=== PATIENT | female | born 1975 | race Caucasian/White ===

== ENCOUNTER 2018-04-18 08:00 | Outpatient (CLI) | payer OTHER ==
[~2018-04-18 08:00] MED LIST: SYNTHROID50 MCG
== END 2018-04-18 11:00 | disposition home or self-care (01) ==
LOC: RAD 08:00 → MAMO-SONO 09:02 → RAD 09:11
DX: Z12.31 Encounter for screening mammogram for malignant neoplasm of breast (principal); Z12.39 Encounter for other screening for malignant neoplasm of breast; E03.8 Other specified hypothyroidism; E11.9 Type 2 diabetes mellitus without complications; M25.511 Pain in right shoulder

== ENCOUNTER 2018-04-18 10:11 | Outpatient (CLI) | payer OTHER | END 2018-04-18 10:14 | disposition home or self-care (01) | LOC: LAB 10:11 | DX: I10 Essential (primary) hypertension (principal); Z12.11 Encounter for screening for malignant neoplasm of colon; E78.2 Mixed hyperlipidemia; Z12.89 Encounter for screening for malignant neoplasm of other sites ==

== ENCOUNTER 2019-10-02 10:15 | Outpatient (CLI) | payer OTHER | END 2019-10-02 10:16 | disposition home or self-care (01) | LOC: LAB 10:15 | DX: E59 Dietary selenium deficiency (principal); I10 Essential (primary) hypertension; Z11.9 Encounter for screening for infectious and parasitic diseases, unspecified; E78.00 Pure hypercholesterolemia, unspecified; E78.1 Pure hyperglyceridemia; Z12.89 Encounter for screening for malignant neoplasm of other sites; Z12.11 Encounter for screening for malignant neoplasm of colon; Z13.89 Encounter for screening for other disorder; E55.9 Vitamin D deficiency, unspecified ==

== ENCOUNTER 2019-10-02 10:38 | Outpatient (CLI) | payer OTHER | END 2019-10-02 10:47 | disposition home or self-care (01) | LOC: MAMO-SONO 10:38 | DX: Z12.31 Encounter for screening mammogram for malignant neoplasm of breast (principal); Z87.898 Personal history of other specified conditions; N60.11 Diffuse cystic mastopathy of right breast; N60.12 Diffuse cystic mastopathy of left breast; I10 Essential (primary) hypertension ==

== ENCOUNTER 2019-10-02 11:29 | Outpatient (CLI) | payer OTHER | END 2019-10-02 12:00 | disposition home or self-care (01) | LOC: NUCLEAR 11:29 | DX: M81.0 Age-related osteoporosis without current pathological fracture (principal) ==

== ENCOUNTER 2020-04-21 09:10 | Outpatient (CLI) | payer OTHER | END 2020-04-21 09:19 | disposition home or self-care (01) | LOC: SONOGRAMA 09:10 | PROVIDERS: ATTEND Pathology Anatomic Pathology & Clinical Pathology | DX: E04.1 Nontoxic single thyroid nodule (principal) ==

== ENCOUNTER → 2020-06-23 | Outpatient (CLI) | payer OTHER | END | disposition home or self-care (01) | LOC: MRI 10:02 | DX: S83.241A Other tear of medial meniscus, current injury, right knee, initial encounter (principal); M25.561 Pain in right knee | CPT/HCPCS: 73721 ==

== ENCOUNTER 2023-07-10 09:48 | Emergency (ER) | payer OTHER ==
[~2023-07-10] VITALS: Ht 157.5 cm; Wt 88.5 kg
[2023-07-10 10:59] LABS: HEMATOCRIT 33.6 % (36.0-45.00); HEMOGLOBIN 10.6 g/dL (12.0-15.00); MEAN CORPUSCULAR HGB CONC 31.7 g/dl (32.0-36.0); PLATELET COUNT 452 K/uL (150-450); RED CELL DISTRIBUTION WIDTH 19.6 % (11.5-14.5)
[2023-07-10 11:00] LABS: MEAN CELL VOLUME 68.5 fL (80.00-100.00); MEAN CORPUSCULAR HEMOGLOBIN 21.7 pg (27.00-32.0)
[2023-07-10 11:34] LABS: ALBUMIN 3.4 gm/dL (3.4-5.0); BILIRUBIN TOTAL 0.18 mg/dL (0.3-1.2); CALCIUM 8.6 mg/dL (8.5-10.1); CREATININE SERUM 0.85 mg/dL (0.55-1.02); GFR 70.79; GLOBULINA 4.4 G/DL (2.4-3.5); POTASSIUM 3.35 mEq/L (3.5-5.1); TOTAL PROTEIN 7.8 gm/dL (6.4-8.2)
[2023-07-10] MEDS ORDERED: TUSNEL LIQUID178 ML PO (12:29)
[2023-07-10] MEDS ORDERED: OSEL75CA PO (12:29)
[2023-07-10] MEDS ORDERED: ONDANSETRON ODT8 MG PO (12:29)
[2023-07-10] MEDS ORDERED: PEPCID AC20 MG PO (12:29)
== END 2023-07-10 13:21 | disposition home or self-care (01) ==
LOC: ER 09:49
PROVIDERS: General Practice
DX: J10.1 Influenza due to other identified influenza virus with other respiratory manifestations (principal); Z20.822 Contact with and (suspected) exposure to COVID-19